=== PATIENT | female | born 1990 ===

== ENCOUNTER 2020-04-18 12:17 | Inpatient (IN) | payer MEDICAID ==
[2020-04-18] MEDS ORDERED: ALBUTEROL 2.5 MG/3 ML NEBU IH ONE ×2 (12:42→14:40)
[2020-04-18] MEDS ORDERED: IPRATROPIUM 0.02% NEBU 2.5 ML IH ONE ×2 (12:42→14:40)
[2020-04-18] MEDS ORDERED: SODIUM CHLORIDE 0.9% 1000 ML 1,000 ML IV ONE (12:45)
--- NOTE | 2020-04-18 12:46 | Emergency Department Report ---
HPI - General Chief Complaint: Adult Asthma Time Seen by Provider: 04/18/20 12:28 - HPI HPI: Room 40 The patient is a 30-year-old female present with a chief complaint of shortness of breath. Patient states for the past 3 to 4 days she has had gradually worsening shortness of breath. Patient admits to a cough productive of yellow sputum occasionally blood-tinged. Patient denies history of fever. Patient denies known contact with Covid positive patients ED Past Medical Hx - Past Medical History Previous Medical History?: Yes Hx Asthma: Yes - Surgical History Past Surgical History?: No - Family History Family history: no significant - Social History Smoking Status: Never Smoker Substance Use Type: None (Denies illicit drug use) ED Review of Systems ROS: Stated complaint: ASTHMA Other details as noted in HPI Constitutional: denies: fever Eyes: denies: eye pain ENT: denies: throat pain Respiratory: cough, shortness of breath, wheezing Cardiovascular: denies: chest pain Endocrine: no symptoms reported Gastrointestinal: denies: abdominal pain Genitourinary: denies: dysuria Musculoskeletal: denies: back pain Neurological: denies: headache Physical Exam - Physical Exam Vital Signs: Vital Signs 04/18/20 04/18/20 12:20 12:23 Temperature 97.9 F Pulse Rate 120 H Respiratory 22 Rate Blood Pressure 120/83 [Right] O2 Sat by Pulse 92 2 L Oximetry Physical Exam: GENERAL: The patient is well-developed well-nourished []. [] HEENT: Normocephalic. Atraumatic. Extraocular motions are intact. Patient has moist mucous membranes. NECK: Supple. No meningitic signs are noted. There is no adenopathy noted. CHEST/LUNGS: Audible wheezing. There is increased work of breathing HEART/CARDIOVASCULAR: Regular. There is tachycardia. There is no gallop rub or murmur. ABDOMEN: Abdomen is soft, nontender. Patient has normal bowel sounds. There is no abdominal distention. SKIN: There is no rash. There is no edema. There is no diaphoresis. NEURO: The patient is awake, alert, and oriented. The patient is cooperative. The patient has normal speech MUSCULOSKELETAL: There is no evidence of acute injury. ED Course Vital Signs 04/18/20 04/18/20 12:20 12:23 Temperature 97.9 F Pulse Rate 120 H Respiratory 22 Rate Blood Pressure 120/83 [Right] O2 Sat by Pulse 92 2 L Oximetry - Reevaluation(s) Reevaluation #1: 04/18/20 14:40 Patient states she is feeling improved. Patient still has faint wheezing at the bases. Will administer another nebulizer Reevaluation #2: 04/18/20 16:13 Patient still has faint expiratory wheezing but maintaining sat at 96% on room air. Patient states she does not feel comfortable going home. Will admit the patient to the hospital ED Medical Decision Making - Lab Data Result diagrams: 04/18/20 13:09 04/18/20 13:09 Laboratory Tests 04/18/20 04/18/20 04/18/20 13:09 13:09 13:09 WBC 10.7 RBC 4.75 Hgb 14.6 H Hct 43.2 H MCV 91 MCH 31 MCHC 34 RDW 12.8 L Plt Count 261 Lymph % (Auto) 8.6 L [place] % (Auto) 1.4 Eos % (Auto) 7.8 H Baso % (Auto) 0.4 Lymph # (Auto) 0.9 L [place] # (Auto) 0.2 Eos # (Auto) 0.8 H Baso # (Auto) 0.0 Seg Neutrophils % 81.8 H Seg Neutrophils # 8.7 H PT 13.1 INR 1.00 Sodium 143 Potassium 4.0 Chloride 108.7 H Carbon Dioxide 26 Anion Gap 12 BUN 10 Creatinine 0.6 Estimated GFR > 60 BUN/Creatinine Ratio 17 Glucose 100 Calcium 8.9 HCG, Qual 04/18/20 13:09 WBC RBC Hgb Hct MCV MCH MCHC RDW Plt Count Lymph % (Auto) [place] % (Auto) Eos % (Auto) Baso % (Auto) Lymph # (Auto) [place] # (Auto) Eos # (Auto) Baso # (Auto) Seg Neutrophils % Seg Neutrophils # PT INR Sodium Potassium Chloride Carbon Dioxide Anion Gap BUN Creatinine Estimated GFR BUN/Creatinine Ratio Glucose Calcium HCG, Qual Negative - Radiology Data Radiology results: report reviewed (Chest x-ray), image reviewed (Chest x-ray) interpreted by me: Chest x-ray-no focal infiltrates, no pneumothorax. No foreign body seen Chest x-ray (read by radiologist)-no acute findings - Differential Diagnosis Pneumonia, bronchitis, asthma exacerbation, COVID-19 Critical care attestation.: If time is entered above; I have spent that time in minutes in the direct care of this critically ill patient, excluding procedure time. ED Disposition Clinical Impression: Acute asthma exacerbation, Acute bronchitis Disposition: OP ADMIT IP TO THIS HOSP Is pt being admited?: Yes Does the pt Need Aspirin: No Condition: Fair Instructions: Acute Bronchitis (ED) Referrals: LIDIA MAKI MD [Primary Care Provider] - 3-5 Days Time of Disposition: 16:13 (Hospitalist notified (Dr. Rodriguez))
[2020-04-18 13:38] LABS: Basophils % (Auto) 0.4 % (0.0-1.8); Eosinophils # (Auto) 0.8 K/mm3 (0.0-0.4); Eosinophils % (Auto) 7.8 % (0.0-4.3); Hematocrit 43.2 % (30.3-42.9); Hemoglobin 14.6 gm/dl (10.1-14.3); Lymphocytes # (Auto) 0.9 K/mm3 (1.2-5.4); Lymphocytes % (Auto) 8.6 % (13.4-35.0); Mean Corpuscular HGB Conc 34 % (30-34); Mean Corpuscular Volume 91 fl (79-97); Monocytes # (Auto) 0.2 K/mm3 (0.0-0.8); Monocytes % (Auto) 1.4 % (0.0-7.3); Platelet Count 261 K/mm3 (140-440); Red Blood Count 4.75 M/mm3 (3.65-5.03); Red Cell Distribution Width 12.8 % (13.2-15.2)
[2020-04-18 14:10] LABS: Blood Urea Nitrogen 10 mg/dL (7-17); Calcium 8.9 mg/dL (8.4-10.2); Hemolysis Index 4
[2020-04-18 14:11] LABS: BUN/Creatinine Ratio 17
--- NOTE | 2020-04-18 14:34 | XRay Report ---
CHEST 1 VIEW INDICATION: Shortness of breath, productive cough. COMPARISON: 04/01/2020 FINDINGS: Support devices: None. Heart: Within normal limits. Lungs/Pleura: There is poor inspiration with crowding of the pulmonary structures. No acute air space or interstitial disease. No pleural effusion or pneumothorax. Additional findings: None. IMPRESSION: No acute findings. Signer Name: Derrick Figueroa Jr, MD Signed: 04/18/2020 2:29 PM Workstation Name: [id number]
[2020-04-18] MEDS ORDERED: guaiFENesin 100 MG/5 ML ORAL LIQD PO ONE (16:00)
[2020-04-18] MEDS ORDERED: cefTRIAXone/NS 1 GM/50 ML 1 GM/50 ML BAG IV ONE (16:14)
[2020-04-18] MEDS ORDERED: METOCLOPRAMIDE 10 MG/2 ML INJ IV PRN (22:10)
[2020-04-18] MEDS ORDERED: ONDANSETRON 4 MG/2 ML INJ IV PRN (22:10)
[2020-04-18] MEDS ORDERED: HYDROmorphone 1 MG/1 ML INJ IV PRN (22:10)
[2020-04-18] MEDS ORDERED: IPRATROPIUM/ALBUTEROL SULFATE 3 ML AMPUL.NEB IH PRN (22:11)
[2020-04-18] MEDS ORDERED: ALBUTEROL 2.5 MG/3 ML NEBU IH PRN (22:29)
[2020-04-18] MEDS: HEPARIN 5,000 UNIT/1 ML VIAL SUB-Q SCH (22:55)
[2020-04-18] MEDS: methylPREDNISolone Sod Succinate 40 MG/1 ML INJ IV SCH (22:55)
[2020-04-18] MEDS: SODIUM CHLORIDE 0.9% 1000 ML 1,000 ML IV SCH (22:56)
--- NOTE | 2020-04-18 23:47 | History and Physical Report ---
History of Present Illness Date of examination: 04/18/20 Date of admission: 04/18/20 16:15 Chief complaint: SOB since AM History of present illness: The patient is a 30-year-old female present with a chief complaint of shortness of breath. Patient states for the past 3 to 4 days she has had gradually worsening shortness of breath. Patient admits to a cough productive of yellow sputum occasionally blood-tinged. Patient denies history of fever. Patient denies known contact with Covid positive patients - Past Medical History Previous Medical History?: Yes Hx Asthma: Yes - Surgical History Past Surgical History?: No - Family History Family history: no significant - Social History Smoking Status: Never Smoker Substance Use Type: None (Denies illicit drug use) Review of Systems ROS: Stated complaint: ASTHMA Other details as noted in HPI Constitutional: denies: fever Eyes: denies: eye pain ENT: denies: throat pain Respiratory: cough, shortness of breath, wheezing Cardiovascular: denies: chest pain Endocrine: no symptoms reported Gastrointestinal: denies: abdominal pain Genitourinary: denies: dysuria Musculoskeletal: denies: back pain Neurological: denies: headache Medications and Allergies Allergies Allergy/AdvReac Type Severity Reaction Status Date / Time No Known Allergies Allergy Unverified 04/18/20 12:21 Home Medications Medication Instructions Recorded Confirmed Last Taken Type Albuterol Sulfate [Proair 90 mcg IH Q6H PRN 04/19/20 04/19/20 Unknown History Respiclick] Active Meds: Active Medications Acetaminophen (Acetaminophen 325 Mg Tab) 650 mg PO Q4H PRN PRN Reason: Pain MILD(1-3)/Fever >100.5/DESOUZA Albuterol (Albuterol 2.5 Mg/3 Ml Nebu) 2.5 mg IH Q3HRT PRN PRN Reason: Shortness Of Breath Last Admin: 04/18/20 23:06 Dose: 2.5 mg Documented by: Albuterol/Ipratropium (Ipratropium/Albuterol Sulfate 3 Ml Ampul.Neb) 1 ampul IH QIDRT MIKA Famotidine (Famotidine 20 Mg/2 Ml Inj) 20 mg IV BID MIKA Heparin Sodium (Porcine) (Heparin 5,000 Unit/1 Ml Vial) 5,000 unit SUB-Q Q12HR MIKA Last Admin: 01/12/21 22:55 Dose: 5,000 unit Documented by: Hydromorphone HCl (Hydromorphone 1 Mg/1 Ml Inj) 0.5 mg IV Q3H PRN PRN Reason: Pain , Severe (7-10) Sodium Chloride (Nacl 0.9% 1000 Ml) 1,000 mls @ 42 mls/hr IV [facility] Last Admin: 04/18/20 22:56 Dose: 42 mls/hr Documented by: Levofloxacin/Dextrose (Levaquin 750mg/150ml) 750 mg in 150 mls @ 100 mls/hr IV Q24HR [facility]; Protocol Methylprednisolone Sodium Succinate (Methylprednisolone Sod Succinate 40 Mg/1 Ml Inj) 80 mg IV Q8HR [facility] Last Admin: 04/18/20 22:55 Dose: 80 mg Documented by: Metoclopramide HCl (Metoclopramide 10 Mg/2 Ml Inj) 10 mg IV Q6H PRN PRN Reason: Nausea And Vomiting Ondansetron HCl (Ondansetron 4 Mg/2 Ml Inj) 4 mg IV Q8H PRN PRN Reason: Nausea And Vomiting Oxycodone/Acetaminophen (Oxycodone /Acetaminophen 5-325mg Tab) 1 tab PO Q6H PRN PRN Reason: Pain, Moderate (4-6) Sodium Chloride (Sodium Chloride 0.9% 10 Ml Flush Syringe) 10 ml IV BID [facility] Last Admin: 04/18/20 22:55 Dose: 10 ml Documented by: Sodium Chloride (Sodium Chloride 0.9% 10 Ml Flush Syringe) 10 ml IV PRN PRN PRN Reason: LINE FLUSH Exam - Constitutional Vitals: Temp Pulse Resp BP Pulse Ox 97.9 F 90 16 119/69 98 04/18/20 12:20 04/18/20 23:07 04/18/20 23:07 04/18/20 20:15 04/18/20 20:15 General appearance: Present: mild distress, well-nourished - EENT Eyes: Present: PERRL ENT: hearing intact, clear oral mucosa - Neck Neck: Present: supple, normal ROM - Respiratory Respiratory effort: normal Respiratory: bilateral: CTA, rhonchi, wheezing - Cardiovascular Heart rate: 78 Rhythm: regular Heart Sounds: Present: S1 & S2. Absent: rub, click - Extremities Extremities: pulses symmetrical, No edema Peripheral Pulses: within normal limits - Abdominal General gastrointestinal: Present: soft, non-tender, non-distended, normal bowel sounds Female genitourinary: Present: normal - Integumentary Integumentary: Present: clear, warm, dry - Musculoskeletal Musculoskeletal: gait normal, strength equal bilaterally - Psychiatric Psychiatric: appropriate mood/affect, intact judgment & insight - Neurologic Neurologic: CNII-XII intact, moves all extremities - Allied Health Allied health notes reviewed: nursing, case management Results - Labs CBC & Chem 7: 04/19/20 07:22 04/22/20 05:36 Labs: Laboratory Last Values WBC 10.7 K/mm3 (4.5-11.0) 04/18/20 13:09 RBC 4.75 M/mm3 (3.65-5.03) 04/18/20 13:09 Hgb 14.6 gm/dl (10.1-14.3) H 04/18/20 13:09 Hct 43.2 % (30.3-42.9) H 04/18/20 13:09 MCV 91 fl (79-97) 04/18/20 13:09 MCH 31 pg (28-32) 04/18/20 13:09 MCHC 34 % (30-34) 04/18/20 13:09 RDW 12.8 % (13.2-15.2) L 04/18/20 13:09 Plt Count 261 K/mm3 (140-440) 04/18/20 13:09 Lymph % (Auto) 8.6 % (13.4-35.0) L 04/18/20 13:09 [place] % (Auto) 1.4 % (0.0-7.3) 04/18/20 13:09 Eos % (Auto) 7.8 % (0.0-4.3) H 04/18/20 13:09 Baso % (Auto) 0.4 % (0.0-1.8) 04/18/20 13:09 Lymph # (Auto) 0.9 K/mm3 (1.2-5.4) L 04/18/20 13:09 [place] # (Auto) 0.2 K/mm3 (0.0-0.8) 04/18/20 13:09 Eos # (Auto) 0.8 K/mm3 (0.0-0.4) H 04/18/20 13:09 Baso # (Auto) 0.0 K/mm3 (0.0-0.1) 04/18/20 13:09 Seg Neutrophils % 81.8 % (40.0-70.0) H 04/18/20 13:09 Seg Neutrophils # 8.7 K/mm3 (1.8-7.7) H 04/18/20 13:09 PT 13.1 Sec. (12.2-14.9) 04/18/20 13:09 INR 1.00 (0.87-1.13) 04/18/20 13:09 Sodium 143 mmol/L (137-145) 04/18/20 13:09 Potassium 4.0 mmol/L (3.6-5.0) 04/18/20 13:09 Chloride 108.7 mmol/L (98-107) H 04/18/20 13:09 Carbon Dioxide 26 mmol/L (22-30) 04/18/20 13:09 Anion Gap 12 mmol/L 04/18/20 13:09 BUN 10 mg/dL (7-17) 04/18/20 13:09 Creatinine 0.6 mg/dL (0.6-1.2) 04/18/20 13:09 Estimated GFR > 60 ml/min 04/18/20 13:09 BUN/Creatinine Ratio 17 % 04/18/20 13:09 Glucose 100 mg/dL (65-100) 04/18/20 13:09 Calcium 8.9 mg/dL (8.4-10.2) 04/18/20 13:09 HCG, Qual Negative (Negative) 04/18/20 13:09 Microbiology: Microbiology 04/18/20 13:09 Peripheral/Venous Blood Culture - Preliminary Culture in Progress 04/18/20 13:09 Peripheral/Venous Blood Culture - Preliminary Culture in Progress - Imaging and Cardiology Chest x-ray: report reviewed Rasmussen/IV: IV Catheter Type [Left Peripheral IV Antecubital] Assessment and Plan Advance Directives: Yes - Patient Problems (1) Acute respiratory failure with hypoxia Current Visit: Yes Status: Acute Plan to address problem: ) IV steroids, Duonebs prn and qid and IV Levaquin (2) Acute asthma exacerbation Current Visit: Yes Status: Acute Plan to address problem: IV steroids, Duonebs prn and qid and IB Levaquin (3) Acute bronchitis Current Visit: Yes Status: Acute Qualifiers: Bronchitis organism: unspecified organism Qualified Code(s): J20.9 - Acute bronchitis, unspecified Plan to address problem: IV steroids, Duonebs prn and qid and IB Levaquin (4) Person under investigation for COVID-19 Current Visit: Yes Status: Acute Plan to address problem: Moseley virus PCR in AM (5) DVT prophylaxis Current Visit: Yes Status: Acute Plan to address problem: on Heparin and GI prophylaxis
[2020-04-19] MEDS: IPRATROPIUM/ALBUTEROL SULFATE 3 ML AMPUL.NEB IH SCH ×5 (01:50→23:09)
[2020-04-19] MEDS ORDERED: IPRATROPIUM/ALBUTEROL SULFATE 3 ML AMPUL.NEB IH ONE (01:53)
[2020-04-19] MEDS: methylPREDNISolone Sod Succinate 40 MG/1 ML INJ IV SCH ×3 (06:15→22:01)
[2020-04-19 07:43] LABS: Basophils % (Auto) 0.1 % (0.0-1.8); Hematocrit 39.3 % (30.3-42.9); Hemoglobin 13.5 gm/dl (10.1-14.3); Lymphocytes # (Auto) 0.9 K/mm3 (1.2-5.4); Lymphocytes % (Auto) 15.4 % (13.4-35.0); Mean Corpuscular HGB Conc 34 % (30-34); Mean Corpuscular Volume 90 fl (79-97); Monocytes # (Auto) 0.2 K/mm3 (0.0-0.8); Monocytes % (Auto) 2.6 % (0.0-7.3); Platelet Count 264 K/mm3 (140-440); Red Blood Count 4.37 M/mm3 (3.65-5.03); Red Cell Distribution Width 12.7 % (13.2-15.2)
[2020-04-19 08:06] LABS: Alanine Aminotransferase 14 units/L (7-56); Albumin 4.1 g/dL (3.9-5); Blood Urea Nitrogen 9 mg/dL (7-17); Calcium 9.2 mg/dL (8.4-10.2); Hemolysis Index 8
[2020-04-19 08:15] LABS: BUN/Creatinine Ratio 18
[2020-04-19] MEDS: HEPARIN 5,000 UNIT/1 ML VIAL SUB-Q SCH ×2 (10:40→22:01)
[2020-04-19] MEDS: FAMOTIDINE 20 MG/2 ML INJ IV SCH ×2 (10:40→22:01)
[2020-04-19] MEDS: SODIUM CHLORIDE 0.9% 1000 ML 1,000 ML IV SCH (22:57)
--- NOTE | 2020-04-19 23:42 | Progress Note ---
Assessment and Plan - Patient Problems (1) Acute respiratory failure with hypoxia Current Visit: Yes Status: Acute Plan to address problem: ) IV steroids, Duonebs prn and qid and IV Levaquin (2) Acute asthma exacerbation Current Visit: Yes Status: Acute Plan to address problem: IV steroids, Duonebs prn and qid and IB Levaquin (3) Acute bronchitis Current Visit: Yes Status: Acute Qualifiers: Bronchitis organism: unspecified organism Qualified Code(s): J20.9 - Acute bronchitis, unspecified Plan to address problem: IV steroids, Duonebs prn and qid and IB Levaquin (4) Pneumonia due to COVID-19 virus Current Visit: Yes Status: Acute Plan to address problem: ID consult requested (5) DVT prophylaxis Current Visit: Yes Status: Acute Plan to address problem: on Lovenox and GI prophylaxis Subjective Date of service: 04/19/20 Principal diagnosis: Status Asthmaticus Interval history: Improved Moseley Virus positive Objective - Constitutional Vitals: Vital Signs - 12hr 04/19/20 04/19/20 04/19/20 12:00 13:42 14:00 Temperature Pulse Rate 98 H 117 H Pulse Rate [ 127 H Throughout] Respiratory 18 15 Rate Respiratory 35 H Rate [ Throughout] Blood Pressure 127/73 105/54 O2 Sat by Pulse 94 Oximetry 04/19/20 04/19/20 04/19/20 16:00 16:09 18:00 Temperature Pulse Rate 107 H 113 H Pulse Rate [ 103 H Throughout] Respiratory 15 21 Rate Respiratory 22 Rate [ Throughout] Blood Pressure 105/54 120/82 O2 Sat by Pulse 97 98 Oximetry 04/19/20 04/19/20 04/19/20 20:00 20:40 20:50 Temperature Pulse Rate 125 H 109 H 109 H Pulse Rate [ Throughout] Respiratory 26 H 22 18 Rate Respiratory Rate [ Throughout] Blood Pressure 120/82 120/77 120/77 O2 Sat by Pulse 96 97 Oximetry 04/19/20 04/19/20 04/19/20 21:00 21:10 21:30 Temperature 97.3 F L Pulse Rate 125 H 119 H 112 H Pulse Rate [ Throughout] Respiratory 24 25 H 24 Rate Respiratory Rate [ Throughout] Blood Pressure 120/77 120/77 147/97 O2 Sat by Pulse 97 Oximetry 04/19/20 23:10 Temperature Pulse Rate Pulse Rate [ 105 H Throughout] Respiratory Rate Respiratory 18 Rate [ Throughout] Blood Pressure O2 Sat by Pulse Oximetry General appearance: Present: mild distress, well-nourished - EENT Eyes: PERRL, EOM intact ENT: hearing intact, clear oral mucosa Ears: bilateral: normal - Neck Neck: supple, normal ROM - Respiratory Respiratory effort: normal Respiratory: bilateral: CTA - Breasts Breasts: normal - Cardiovascular Heart rate: 78 Rhythm: regular Heart Sounds: Present: S1 & S2. Absent: gallop, rub Extremities: pulses intact, No edema, normal color, Full ROM - Gastrointestinal General gastrointestinal: Present: soft, non-tender, non-distended, normal bowel sounds - Genitourinary Female genitourinary: normal - Integumentary Integumentary: clear, warm, dry - Musculoskeletal Musculoskeletal: 1, strength equal bilaterally - Neurologic Neurologic: moves all extremities - Psychiatric Psychiatric: memory intact, appropriate mood/affect, intact judgment & insight - Allied health notes Allied health notes reviewed: nursing, case management - Labs CBC & Chem 7: 04/19/20 07:22 04/22/20 05:36 Labs: Abnormal lab results 04/19/20 04/19/20 04/19/20 Range/Units 07:22 07:22 09:46 RDW 12.7 L (13.2-15.2) % Lymph # (Auto) 0.9 L (1.2-5.4) K/mm3 Seg Neutrophils % 81.9 H (40.0-70.0) % Chloride 108.4 H (98-107) mmol/L Creatinine 0.5 L (0.6-1.2) mg/dL Glucose 142 H (65-100) mg/dL Coronavirus (PCR) Positive A (Negative)
[2020-04-20] MEDS: guaiFENesin DM 200/20 MG ORAL LIQD 10 ML PO PRN ×4 (02:11→21:46)
[2020-04-20] MEDS: oxyCODONE /ACETAMINOPHEN 5-325MG TAB PO PRN ×2 (02:11→21:46)
[2020-04-20] MEDS ORDERED: ALBUTEROL 8.5 GM MDI INHALATION IH PRN (03:00)
[2020-04-20] MEDS: methylPREDNISolone Sod Succinate 40 MG/1 ML INJ IV SCH ×3 (06:02→21:48)
[2020-04-20] MEDS: IPRATROPIUM/ALBUTEROL SULFATE 3 ML AMPUL.NEB IH SCH ×5 (08:09→19:15)
[2020-04-20] MEDS: FAMOTIDINE 20 MG TAB PO SCH ×2 (10:48→21:47)
[2020-04-20] MEDS: levoFLOXacin 750 MG TAB PO SCH (10:48)
[2020-04-20] MEDS: HEPARIN 5,000 UNIT/1 ML VIAL SUB-Q SCH ×2 (10:48→21:47)
--- NOTE | 2020-04-20 18:44 | Progress Note ---
Assessment and Plan - Patient Problems (1) Acute respiratory failure with hypoxia Current Visit: Yes Status: Acute Plan to address problem: ) IV steroids, Duonebs prn and qid and IB Levaquin (2) Acute asthma exacerbation Current Visit: Yes Status: Acute Plan to address problem: IV steroids, Duonebs prn and qid and IB Levaquin (3) Acute bronchitis Current Visit: Yes Status: Acute Qualifiers: Bronchitis organism: unspecified organism Qualified Code(s): J20.9 - Acute bronchitis, unspecified Plan to address problem: IV steroids, Duonebs prn and qid and IB Levaquin (4) Pneumonia due to COVID-19 virus Current Visit: Yes Status: Acute Plan to address problem: ID consult appreciated COVID-19 pneumonia: Patient presented with 4 days of symptoms, chest x-ray normal, admission O2 sats 98% on room air. Normal procalcitonin. #Acute hypoxemic respiratory failure: Likely secondary to COVID-19 infection. Currently on 2 L nasal cannula #Morbid obesity: Associated with worse COVID-19 outcomes #Asthma: currently on high-dose steroids Recs per ID -Steroids per primary, complete 10 days. -Started remdesivir for 5 days. Monitor renal and hepatic function. Day 1 of 5. -Obtain every other day inflammatory markers starting today. Includes ferritin, D-dimer, CRP, LDH -Stop antibiotics due to normal procalcitonin -Anticoagulation per hospital protocol -Proning as able (5) DVT prophylaxis Current Visit: Yes Status: Acute Plan to address problem: on Heparin and GI prophylaxis Subjective Date of service: 04/20/20 Principal diagnosis: Covid pneumonia Interval history: Improved Moseley Virus positive On 3 liters O2 Objective - Constitutional Vitals: Vital Signs - 12hr 04/20/20 04/20/20 04/20/20 08:09 08:10 12:00 Pulse Rate [ 108 H Throughout] Respiratory 19 Rate [ Throughout] O2 Sat by Pulse 97 95 Oximetry 04/20/20 04/20/20 04/20/20 14:00 17:54 17:55 Pulse Rate [ 94 H 75 Throughout] Respiratory 19 18 Rate [ Throughout] O2 Sat by Pulse 99 Oximetry General appearance: Present: no acute distress, well-nourished - EENT Eyes: PERRL, EOM intact ENT: hearing intact, clear oral mucosa Ears: bilateral: normal - Neck Neck: supple, normal ROM - Respiratory Respiratory effort: normal Respiratory: bilateral: CTA - Breasts Breasts: normal - Cardiovascular Heart rate: 78 Rhythm: regular Heart Sounds: Present: S1 & S2. Absent: gallop, rub Extremities: pulses intact, No edema, normal color, Full ROM - Gastrointestinal General gastrointestinal: Present: soft, non-tender, non-distended, normal bowel sounds - Genitourinary Female genitourinary: normal - Integumentary Integumentary: clear, warm, dry - Musculoskeletal Musculoskeletal: 1, strength equal bilaterally - Neurologic Neurologic: moves all extremities - Psychiatric Psychiatric: memory intact, appropriate mood/affect, intact judgment & insight - Allied health notes Allied health notes reviewed: nursing, case management - Labs CBC & Chem 7: 04/19/20 07:22 04/22/20 05:36
[2020-04-21] MEDS: methylPREDNISolone Sod Succinate 40 MG/1 ML INJ IV SCH ×3 (06:20→22:22)
[2020-04-21] MEDS ORDERED: REMDESIVIR 200 MG in SODIUM CHLORIDE 0.9% 250ML 250 ML IV ONE (08:00)
[2020-04-21] MEDS ORDERED: REMDESIVIR 100 MG VIAL IV ONE (08:00)
[2020-04-21] MEDS: SODIUM CHLORIDE 0.9% 50 ML IVPB IV SCH (08:03)
[2020-04-21] MEDS: IPRATROPIUM/ALBUTEROL SULFATE 3 ML AMPUL.NEB IH SCH ×4 (08:06→20:50)
[2020-04-21] MEDS: levoFLOXacin 750 MG TAB PO SCH (10:08)
[2020-04-21] MEDS: HEPARIN 5,000 UNIT/1 ML VIAL SUB-Q SCH ×2 (10:08→22:22)
[2020-04-21] MEDS: FAMOTIDINE 20 MG TAB PO SCH ×2 (10:08→22:21)
--- NOTE | 2020-04-21 12:24 | Consultation ---
History of Present Illness - Reason for Consult Consult date: 04/21/20 - History of Present Illness 30 old female past medical history asthma noted with shortness of breath. This began about 3 to 4 days prior to admission has been progressively worse since that time. She also complains of a cough that is productive of yellow sputum. She denies fevers, chills, or other Covid symptoms. She denies any known Covid contacts. Afebrile since admission with a normal white count. Covid testing positive. Normal procalcitonin, normal renal function. Blood cultures remain negative at this time. She is currently on 2 L nasal cannula. Imaging personally reviewed: Chest x-ray: No acute findings. Review of systems: Deferred due to PPE conservation strategy. Past History Past Medical History: other (Asthma) Past Surgical History: No surgical history Social history: no significant social history Family history: no significant family history Medications and Allergies Allergies Allergy/AdvReac Type Severity Reaction Status Date / Time No Known Allergies Allergy Unverified 04/18/20 12:21 Home Medications Medication Instructions Recorded Confirmed Last Taken Type Albuterol Sulfate [Proair 90 mcg IH Q6H PRN 04/19/20 04/19/20 Unknown History Respiclick] Active Meds: Active Medications Acetaminophen (Acetaminophen 325 Mg Tab) 650 mg PO Q4H PRN PRN Reason: Pain MILD(1-3)/Fever >100.5/DESOUZA Albuterol (Albuterol 8.5 Gm Mdi Inhalation) 2 puff IH Q3HRT PRN PRN Reason: Shortness Of Breath Albuterol/Ipratropium (Ipratropium/Albuterol Sulfate 3 Ml Ampul.Neb) 1 ampul IH QIDRT COUNTS INCLUDE 234 BEDS AT THE [facility] Last Admin: 04/21/20 08:06 Dose: 1 ampul Documented by: Famotidine (Famotidine 20 Mg Tab) 20 mg PO BID COUNTS INCLUDE 234 BEDS AT THE [facility] Last Admin: 04/21/20 10:08 Dose: 20 mg Documented by: Guaifenesin (Guaifenesin Dm 200/20 Mg Oral Liqd 10 Ml) 10 ml PO Q4H PRN PRN Reason: Cough Last Admin: 04/20/20 21:46 Dose: 10 ml Documented by: Heparin Sodium (Porcine) (Heparin 5,000 Unit/1 Ml Vial) 5,000 unit SUB-Q Q12HR COUNTS INCLUDE 234 BEDS AT THE [facility] Last Admin: 04/21/20 10:08 Dose: 5,000 unit Documented by: Hydromorphone HCl (Hydromorphone 1 Mg/1 Ml Inj) 0.5 mg IV Q3H PRN PRN Reason: Pain , Severe (7-10) Last Admin: 04/19/20 12:15 Dose: 0.5 mg Documented by: Sodium Chloride (Nacl 0.9% 1000 Ml) 1,000 mls @ 42 mls/hr IV DIRECT COUNTS INCLUDE 234 BEDS AT THE [facility] Last Admin: 04/19/20 22:57 Dose: 42 mls/hr Documented by: REMDESIVIR 100 mg/ Sodium (Chloride) 250 mls @ 500 mls/hr IV Q24HR@2100 COUNTS INCLUDE 234 BEDS AT THE [facility] Stop: 04/25/20 21:29 Levofloxacin (Levofloxacin 750 Mg Tab) 750 mg PO Q24HR COUNTS INCLUDE 234 BEDS AT THE [facility] Stop: 04/23/20 12:00 Last Admin: 04/21/20 10:08 Dose: 750 mg Documented by: Methylprednisolone Sodium Succinate (Methylprednisolone Sod Succinate 40 Mg/1 Ml Inj) 80 mg IV Q8HR COUNTS INCLUDE 234 BEDS AT THE [facility] Last Admin: 04/21/20 06:20 Dose: 80 mg Documented by: Metoclopramide HCl (Metoclopramide 10 Mg/2 Ml Inj) 10 mg IV Q6H PRN PRN Reason: Nausea And Vomiting Ondansetron HCl (Ondansetron 4 Mg/2 Ml Inj) 4 mg IV Q8H PRN PRN Reason: Nausea And Vomiting Oxycodone/Acetaminophen (Oxycodone /Acetaminophen 5-325mg Tab) 1 tab PO Q6H PRN PRN Reason: Pain, Moderate (4-6) Last Admin: 04/20/20 21:46 Dose: 1 tab Documented by: Sodium Chloride (Sodium Chloride 0.9% 10 Ml Flush Syringe) 10 ml IV BID COUNTS INCLUDE 234 BEDS AT THE [facility] Last Admin: 04/21/20 10:09 Dose: 10 ml Documented by: Sodium Chloride (Sodium Chloride 0.9% 10 Ml Flush Syringe) 10 ml IV PRN PRN PRN Reason: LINE FLUSH Last Admin: 04/19/20 10:41 Dose: 10 ml Documented by: Sodium Chloride (Sodium Chloride 0.9% 50 Ml Ivpb) 50 ml IV Q24HR@2100 COUNTS INCLUDE 234 BEDS AT THE [facility] Stop: 04/25/20 21:01 Last Admin: 04/21/20 08:03 Dose: 50 ml Documented by: Physical Examination - Physical Exam Narrative exam: Physical exam deferred due to PPE conservation strategy. Please refer to primary team's note. - Constitutional Vitals: Vital Signs Temp Pulse Resp BP Pulse Ox 97.9 F 92 H 20 106/63 94 04/21/20 04:41 04/21/20 08:06 04/21/20 08:06 04/21/20 04:41 04/21/20 08:06 Temperature -Last 24 Hours Temperature 97.9 F Temperature 97.8 F Temperature 98.4 F Results - Labs CBC & Chem 7: 04/19/20 07:22 04/19/20 07:22 Assessment and Plan Cultures: Blood culture no growth so far Covid positive A/P: 30-year-old female past medical history asthma, morbid obesity admitted with COVID-19 #COVID-19 pneumonia: Patient presented with 4 days of symptoms, chest x-ray normal, admission O2 sats 98% on room air. Normal procalcitonin. #Acute hypoxemic respiratory failure: Likely secondary to COVID-19 infection. Currently on 2 L nasal cannula #Morbid obesity: Associated with worse COVID-19 outcomes #Asthma: currently on high-dose steroids Recs: -Steroids per primary, complete 10 days. -Started remdesivir for 5 days. Monitor renal and hepatic function. Day 1 of 5. -Obtain every other day inflammatory markers starting today. Includes ferritin, D-dimer, CRP, LDH -Stop antibiotics due to normal procalcitonin -Anticoagulation per hospital protocol -Proning as able Thank you for the consult, we will continue to follow. Dr. Mijares taking over tomorrow. Urbano Galeano MD [facility] O: [phone] F: [phone]
[2020-04-21 13:50] LABS: C-Reactive Protein 0.1 mg/dL (0.00-1.30)
[2020-04-21] MEDS: guaiFENesin DM 200/20 MG ORAL LIQD 10 ML PO PRN (22:20)
[2020-04-21] MEDS: ACETAMINOPHEN 325 MG TAB PO PRN (22:34)
[2020-04-22] MEDS: methylPREDNISolone Sod Succinate 40 MG/1 ML INJ IV SCH ×3 (05:53→21:01)
[2020-04-22] MEDS: oxyCODONE /ACETAMINOPHEN 5-325MG TAB PO PRN ×2 (05:59→21:30)
[2020-04-22 06:47] LABS: Alanine Aminotransferase 12 units/L (7-56); Albumin 3.7 g/dL (3.9-5); Blood Urea Nitrogen 15 mg/dL (7-17); Calcium 8.6 mg/dL (8.4-10.2); Hemolysis Index 5
[2020-04-22 06:48] LABS: BUN/Creatinine Ratio 25
[2020-04-22] MEDS: IPRATROPIUM/ALBUTEROL SULFATE 3 ML AMPUL.NEB IH SCH ×4 (07:46→21:03)
[2020-04-22] MEDS: ACETAMINOPHEN 325 MG TAB PO PRN (08:53)
--- NOTE | 2020-04-22 10:25 | Progress Note ---
Assessment and Plan - Patient Problems (1) Acute respiratory failure with hypoxia Current Visit: Yes Status: Acute Plan to address problem: ) IV steroids, Duonebs prn and qid and IV Levaquin (2) Acute asthma exacerbation Current Visit: Yes Status: Acute Plan to address problem: IV steroids, Duonebs prn and qid and IB Levaquin (3) Acute bronchitis Current Visit: Yes Status: Acute Qualifiers: Bronchitis organism: unspecified organism Qualified Code(s): J20.9 - Acute bronchitis, unspecified Plan to address problem: IV steroids, Duonebs prn and qid and IB Levaquin (4) Pneumonia due to COVID-19 virus Current Visit: Yes Status: Acute Plan to address problem: ID consult appreciated COVID-19 pneumonia: Patient presented with 4 days of symptoms, chest x-ray normal, admission O2 sats 98% on room air. Normal procalcitonin. #Acute hypoxemic respiratory failure: Likely secondary to COVID-19 infection. Currently on 2 L nasal cannula #Morbid obesity: Associated with worse COVID-19 outcomes #Asthma: currently on high-dose steroids Recs per ID -Steroids per primary, complete 10 days. -Started remdesivir for 5 days. Monitor renal and hepatic function. Day 1 of 5. -Obtain every other day inflammatory markers starting today. Includes ferritin, D-dimer, CRP, LDH -Stop antibiotics due to normal procalcitonin -Anticoagulation per hospital protocol -Proning as able (5) DVT prophylaxis Current Visit: Yes Status: Acute Plan to address problem: on Lovenox and GI prophylaxis Subjective Date of service: 04/21/20 Principal diagnosis: Covid pneumonia Interval history: Improved Mose[place] Virus positive On 2 liters O2 Objective - Constitutional Vitals: Vital Signs - 12hr 04/21/20 04/21/20 04/22/20 22:42 22:53 00:00 Temperature 97.6 F Pulse Rate 83 Pulse Rate [ 85 Anterior Bilateral Throughout] Respiratory 18 18 Rate Respiratory 18 Rate [Anterior Bilateral Throughout] Blood Pressure 109/66 O2 Sat by Pulse 97 97 Oximetry 04/22/20 04/22/20 04:20 04:59 Temperature 98.1 F Pulse Rate 78 Pulse Rate [ Anterior Bilateral Throughout] Respiratory 18 Rate Respiratory Rate [Anterior Bilateral Throughout] Blood Pressure 96/55 O2 Sat by Pulse 97 96 Oximetry General appearance: Present: no acute distress, well-nourished - EENT Eyes: PERRL, EOM intact ENT: hearing intact, clear oral mucosa Ears: bilateral: normal - Neck Neck: supple, normal ROM - Respiratory Respiratory effort: normal Respiratory: bilateral: CTA - Breasts Breasts: normal - Cardiovascular Heart rate: 78 Rhythm: regular Heart Sounds: Present: S1 & S2. Absent: gallop, rub Extremities: pulses intact, No edema, normal color, Full ROM - Gastrointestinal General gastrointestinal: Present: soft, non-tender, non-distended, normal bowel sounds - Genitourinary Female genitourinary: normal - Integumentary Integumentary: clear, warm, dry - Musculoskeletal Musculoskeletal: 1, strength equal bilaterally - Neurologic Neurologic: moves all extremities - Psychiatric Psychiatric: memory intact, appropriate mood/affect, intact judgment & insight - Allied health notes Allied health notes reviewed: nursing, case management - Labs CBC & Chem 7: 04/19/20 07:22 04/22/20 05:36 Labs: Abnormal lab results 04/21/20 04/22/20 Range/Units 13:07 05:36 Glucose 136 H (65-100) mg/dL Lactate Dehydrogenase 212 H (91-180) units/L Total Protein 5.7 L (6.3-8.2) g/dL Albumin 3.7 L (3.9-5) g/dL
--- NOTE | 2020-04-22 11:07 | Progress Note ---
Assessment and Plan - Patient Problems (1) Acute respiratory failure with hypoxia Current Visit: Yes Status: Acute Plan to address problem: Supplemental oxygen, pulse oximetry, supportive care, proposition while in bed, wean supplemental oxygen to off as clinically indicated. (2) Coronavirus infection Current Visit: Yes Status: Acute Plan to address problem: Contact precautions, isolation precautions, IV antibiotic therapy, IV steroid therapy, full course remdesivir therapy. (3) Obesity hypoventilation syndrome Current Visit: Yes Status: Acute Plan to address problem: Supplemental oxygen, pulse oximetry, outpatient pulmonary follow-up for sleep study. Balanced diet, increase physical activity discharge. (4) DVT prophylaxis Current Visit: Yes Status: Acute Plan to address problem: SCD to bilateral lower extremities while in bed, patient is ambulatory. Prophylactic anticoagulation History Interval history: 30 YO Female HD #4 with acute hypoxemic respiratory failure, obesity hypoventilation syndrome, coronavirus infection. Patient states that she feels better today. Patient denies fever, chills, chest pain, productive cough. No reported nursing events. Hospitalist Physical - Constitutional Vitals: Temp Pulse Resp BP Pulse Ox 98.1 F 78 18 96/55 96 04/22/20 04:20 04/22/20 04:20 04/22/20 04:20 04/22/20 04:20 04/22/20 04:59 General appearance: Present: no acute distress, well-nourished - EENT Eyes: Present: PERRL, EOM intact ENT: hearing intact - Neck Neck: Present: supple - Respiratory Respiratory effort: normal Respiratory: bilateral: CTA - Cardiovascular Rhythm: regular Heart Sounds: Present: S1 & S2 - Extremities Extremities: no ischemia - Abdominal General gastrointestinal: soft, non-tender, non-distended - Integumentary Integumentary: Present: clear, erythema - Psychiatric Psychiatric: appropriate mood/affect, cooperative - Neurologic Neurologic: CNII-XII intact Results - Labs CBC & Chem 7: 04/19/20 07:22 04/22/20 05:36 Labs: Laboratory Last Values WBC 6.2 K/mm3 (4.5-11.0) 04/19/20 07:22 RBC 4.37 M/mm3 (3.65-5.03) 04/19/20 07:22 Hgb 13.5 gm/dl (10.1-14.3) 04/19/20 07:22 Hct 39.3 % (30.3-42.9) 04/19/20 07:22 MCV 90 fl (79-97) 04/19/20 07: MCH 31 pg (28-32) 04/19/20 07:22 MCHC 34 % (30-34) 04/19/20 07:22 RDW 12.7 % (13.2-15.2) L 04/19/20 07:22 Plt Count 264 K/mm3 (140-440) 04/19/20 07:22 Lymph % (Auto) 15.4 % (13.4-35.0) 04/19/20 07:22 Bertie % (Auto) 2.6 % (0.0-7.3) 04/19/20 07:22 Eos % (Auto) 0.0 % (0.0-4.3) 04/19/20 07: Baso % (Auto) 0.1 % (0.0-1.8) 04/19/20 07:22 Lymph # (Auto) 0.9 K/mm3 (1.2-5.4) L 04/19/20 07:22 Bertie # (Auto) 0.2 K/mm3 (0.0-0.8) 04/19/20 07:22 Eos # (Auto) 0.0 K/mm3 (0.0-0.4) 04/19/20 07:22 Baso # (Auto) 0.0 K/mm3 (0.0-0.1) 04/19/20 07:22 Seg Neutrophils % 81.9 % (40.0-70.0) H 04/19/20 07:22 Seg Neutrophils # 5.0 K/mm3 (1.8-7.7) 04/19/20 07:22 PT 13.1 Sec. (12.2-14.9) 04/18/20 13:09 INR 1.00 (0.87-1.13) 04/18/20 13:09 D-Dimer 228.57 ng/mlDDU (0-234) 04/21/20 13:07 Sodium 138 mmol/L (137-145) 04/22/20 05:36 Potassium 4.2 mmol/L (3.6-5.0) 04/22/20 05:36 Chloride 102.4 mmol/L (98-107) 04/22/20 05:36 Carbon Dioxide 25 mmol/L (22-30) 04/22/20 05:36 Anion Gap 15 mmol/L 04/22/20 05:36 BUN 15 mg/dL (7-17) 04/22/20 05:36 Creatinine 0.6 mg/dL (0.6-1.2) 04/22/20 05:36 Estimated GFR > 60 ml/min 04/22/20 05:36 BUN/Creatinine Ratio 25 % 04/22/20 05:36 Glucose 136 mg/dL (65-100) H 04/22/20 05:36 Hemoglobin A1c 5.6 % (4-6) 04/18/20 23:20 Calcium 8.6 mg/dL (8.4-10.2) 04/22/20 05:36 Ferritin 73.6 ng/mL (10.0-200.0) 04/21/20 13:07 Total Bilirubin 0.20 mg/dL (0.1-1.2) 04/22/20 05:36 AST 8 units/L (5-40) 04/22/20 05:36 ALT 12 units/L (7-56) 04/22/20 05:36 Alkaline Phosphatase 57 units/L (35-129) 04/22/20 05:36 Lactate Dehydrogenase 212 units/L (91-180) H 04/21/20 13:07 C-Reactive Protein 0.10 mg/dL (0.00-1.30) 04/21/20 13:07 Total Protein 5.7 g/dL (6.3-8.2) L 04/22/20 05:36 Albumin 3.7 g/dL (3.9-5) L 04/22/20 05:36 Albumin/Globulin Ratio 1.9 % 04/22/20 05:36 Procalcitonin < 0.05 ng/mL (<0.15) 04/18/20 20:50 HCG, Qual Negative (Negative) 04/18/20 13:09 Coronavirus (PCR) Positive (Negative) A 04/19/20 09:46 Microbiology: Microbiology 04/18/20 13:09 Peripheral/Venous Blood Culture - Preliminary NO GROWTH AFTER 72 HOURS 04/18/20 13:09 Peripheral/Venous Blood Culture - Preliminary NO GROWTH AFTER 72 HOURS Rasmussen/IV: Voiding Method Toilet IV Catheter Type [Right Hand] Peripheral IV IV Catheter Type [Right Peripheral IV Forearm] IV Catheter Type [Left Peripheral IV Antecubital] Active Medications - Current Medications Current Medications: Generic Name Dose Route Start Last Admin Trade Name Freq PRN Reason Stop Dose Admin Acetaminophen 650 mg 04/18/20 22:10 04/22/20 08:53 Acetaminophen 325 Mg Tab PO 650 mg Q4H PRN Administration Pain MILD(1-3)/Fever >100.5/DESOUZA Albuterol 2 puff 04/20/20 03:00 Albuterol 8.5 Gm Mdi Inhalation IH Q3HRT PRN Shortness Of Breath Albuterol/Ipratropium 1 ampul 04/19/20 08:00 04/22/20 07:46 Ipratropium/Albuterol Sulfate 3 Ml Ampul.Neb IH 1 ampul QIDRT MIKA Administration Famotidine 20 mg 04/20/20 10:00 04/21/20 22:21 Famotidine 20 Mg Tab PO 20 mg BID MIKA Administration Guaifenesin 10 ml 04/20/20 00:10 04/21/20 22:20 Guaifenesin Dm 200/20 Mg Oral Liqd 10 Ml PO 10 ml Q4H PRN Administration Cough Heparin Sodium (Porcine) 5,000 unit 04/18/20 22:15 04/21/20 22:22 Heparin 5,000 Unit/1 Ml Vial SUB-Q 5,000 unit Q12HR MIKA Administration Hydromorphone HCl 0.5 mg 04/18/20 22:10 04/19/20 12:15 Hydromorphone 1 Mg/1 Ml Inj IV 0.5 mg Q3H PRN Administration Pain , Severe (7-10) Sodium Chloride 1,000 mls @ 42 mls/hr 04/18/20 22:15 04/19/20 22:57 Nacl 0.9% 1000 Ml IV 42 mls/hr DIRECT MIKA Administration REMDESIVIR 100 mg/ Sodium 250 mls @ 500 mls/hr 04/22/20 21:00 Chloride IV 04/25/20 21:29 Q24HR@2100 MIKA Methylprednisolone Sodium Succinate 80 mg 04/18/20 23:00 04/22/20 05:53 Methylprednisolone Sod Succinate 40 Mg/1 Ml Inj IV 80 mg Q8HR MIKA Administration Metoclopramide HCl 10 mg 04/18/20 22:10 Metoclopramide 10 Mg/2 Ml Inj IV Q6H PRN Nausea And Vomiting Ondansetron HCl 4 mg 04/18/20 22:10 Ondansetron 4 Mg/2 Ml Inj IV Q8H PRN Nausea And Vomiting Oxycodone/Acetaminophen 1 tab 04/18/20 22:10 04/22/20 05:59 Oxycodone /Acetaminophen 5-325mg Tab PO 1 tab Q6H PRN Administration Pain, Moderate (4-6) Sodium Chloride 10 ml 04/18/20 23:00 04/21/20 22:22 Sodium Chloride 0.9% 10 Ml Flush Syringe IV 10 ml BID MIKA Administration Sodium Chloride 10 ml 04/18/20 22:10 04/19/20 10:41 Sodium Chloride 0.9% 10 Ml Flush Syringe IV 10 ml PRN PRN Administration LINE FLUSH Sodium Chloride 50 ml 04/21/20 08:30 04/21/20 08:03 Sodium Chloride 0.9% 50 Ml Ivpb IV 04/25/20 21:01 50 ml Q24HR@2100 MIKA Administration
[2020-04-22] MEDS: FAMOTIDINE 20 MG TAB PO SCH ×2 (12:37→22:51)
[2020-04-22] MEDS: HEPARIN 5,000 UNIT/1 ML VIAL SUB-Q SCH ×2 (12:37→21:02)
[2020-04-22] MEDS: SODIUM CHLORIDE 0.9% 50 ML IVPB IV SCH (21:01)
[2020-04-22] MEDS: REMDESIVIR 100 MG in SODIUM CHLORIDE 0.9% 250ML 250 ML IV SCH (21:01)
[2020-04-22] MEDS: guaiFENesin DM 200/20 MG ORAL LIQD 10 ML PO PRN (21:30)
[2020-04-23] MEDS: methylPREDNISolone Sod Succinate 40 MG/1 ML INJ IV SCH ×3 (06:14→21:46)
[2020-04-23 07:19] LABS: Alanine Aminotransferase 11 units/L (7-56); Albumin 3.6 g/dL (3.9-5); BUN/Creatinine Ratio 25; Blood Urea Nitrogen 15 mg/dL (7-17); Calcium 8.5 mg/dL (8.4-10.2); Hemolysis Index 7
[2020-04-23] MEDS: IPRATROPIUM/ALBUTEROL SULFATE 3 ML AMPUL.NEB IH SCH ×4 (08:02→19:00)
[2020-04-23] MEDS: FAMOTIDINE 20 MG TAB PO SCH ×2 (09:55→21:44)
[2020-04-23] MEDS: HEPARIN 5,000 UNIT/1 ML VIAL SUB-Q SCH ×2 (09:55→21:46)
--- NOTE | 2020-04-23 09:56 | Progress Note ---
Assessment and Plan Cultures: Blood culture no growth so far Covid positive A/P: 30-year-old female past medical history asthma, morbid obesity admitted with COVID-19 #COVID-19 pneumonia: Patient presented with 4 days of symptoms, chest x-ray normal, admission O2 sats 98% on room air. Normal procalcitonin. #Acute hypoxemic respiratory failure: Likely secondary to COVID-19 infection. Currently on room air. #Morbid obesity: Associated with worse COVID-19 outcomes #Asthma: currently on high-dose steroids Recs: -Obtain 6-minute walking test, if passes test okay to discharge, patient does not need to complete 5 days of remdesivir./Patient currently on room air -Steroids per primary, complete 10 days. -Continue remdesivir, monitor renal and hepatic function. Day 3 of 5. -Recheck inflammatory markers today -Anticoagulation per hospital protocol -Proning as able Crys Mijares MD [facility] ([facility]) Office [phone] Subjective Date of service: 04/23/20 Principal diagnosis: Covid pneumonia Interval history: Patient on room air, no fever, no tachycardia, no hypotension. Objective - Exam Narrative Exam: Physical exam deferred to minimize COVID-19 transmission during pandemic. ER and internal medicine physical examination notes reviewed. - Constitutional Vitals: Vital Signs Temp Pulse Resp BP Pulse Ox 98.2 F 84 18 105/70 97 04/23/20 05:08 04/23/20 08:04 04/23/20 08:04 04/23/20 05:08 04/23/20 08:04 Temperature -Last 24 Hours Temperature 98.2 F Temperature 97.8 F Temperature 97.8 F Temperature 97.7 F - Labs CBC & Chem 7: 04/19/20 07:22 04/23/20 05:31 Labs: Abnormal lab results 04/23/20 Range/Units 05:31 Glucose 134 H (65-100) mg/dL Total Protein 5.7 L (6.3-8.2) g/dL Albumin 3.6 L (3.9-5) g/dL
--- NOTE | 2020-04-23 11:44 | Progress Note ---
Assessment and Plan - Patient Problems (1) Acute respiratory failure with hypoxia Current Visit: Yes Status: Acute Plan to address problem: Supplemental oxygen, pulse oximetry, supportive care, proposition while in bed, wean supplemental oxygen to off as clinically indicated. (2) Coronavirus infection Current Visit: Yes Status: Acute Plan to address problem: Contact precautions, isolation precautions, IV antibiotic therapy, IV steroid therapy, full course remdesivir therapy. (3) Obesity hypoventilation syndrome Current Visit: Yes Status: Acute Plan to address problem: Supplemental oxygen, pulse oximetry, outpatient pulmonary follow-up for sleep study. Balanced diet, increase physical activity discharge. (4) DVT prophylaxis Current Visit: Yes Status: Acute Plan to address problem: SCD to bilateral lower extremities while in bed, patient is ambulatory. Prophylactic anticoagulation History Interval history: 30 YO Female HD #5 with acute hypoxemic respiratory failure, obesity hypoventilation syndrome, coronavirus infection currently undergoing remdesivir therapy. Patient states that she feels better again today. Patient denies fever, chills, chest pain, productive cough. No reported nursing events. Hospitalist Physical - Constitutional Vitals: Temp Pulse Resp BP Pulse Ox 98.2 F 84 18 105/70 97 04/23/20 05:08 04/23/20 08:04 04/23/20 08:04 04/23/20 05:08 04/23/20 08:04 General appearance: Present: no acute distress, well-nourished - EENT Eyes: Present: PERRL ENT: hearing intact - Neck Neck: Present: supple - Respiratory Respiratory effort: labored Respiratory: bilateral: diminished, rhonchi - Cardiovascular Rhythm: regular Heart Sounds: Present: S1 & S2 - Extremities Extremities: no ischemia Peripheral Pulses: within normal limits - Abdominal General gastrointestinal: soft, non-tender, non-distended - Integumentary Integumentary: Present: clear, dry - Psychiatric Psychiatric: appropriate mood/affect, cooperative - Neurologic Neurologic: CNII-XII intact Results - Labs CBC & Chem 7: 04/19/20 07:22 04/23/20 05:31 Labs: Laboratory Last Values WBC 6.2 K/mm3 (4.5-11.0) 04/19/20 07:22 RBC 4.37 M/mm3 (3.65-5.03) 04/19/20 07:22 Hgb 13.5 gm/dl (10.1-14.3) 04/19/20 07: Hct 39.3 % (30.3-42.9) 04/19/20 07: MCV 90 fl (79-97) 04/19/20 07: MCH 31 pg (28-32) 04/19/20 07: MCHC 34 % (30-34) 04/19/20 07:22 RDW 12.7 % (13.2-15.2) L 04/19/20 07:22 Plt Count 264 K/mm3 (140-440) 04/19/20 07:22 Lymph % (Auto) 15.4 % (13.4-35.0) 04/19/20 07: Linn % (Auto) 2.6 % (0.0-7.3) 04/19/20 07: Eos % (Auto) 0.0 % (0.0-4.3) 04/19/20 07: Baso % (Auto) 0.1 % (0.0-1.8) 04/19/20 07: Lymph # (Auto) 0.9 K/mm3 (1.2-5.4) L 04/19/20 07:22 Linn # (Auto) 0.2 K/mm3 (0.0-0.8) 04/19/20 07: Eos # (Auto) 0.0 K/mm3 (0.0-0.4) 04/19/20 07: Baso # (Auto) 0.0 K/mm3 (0.0-0.1) 04/19/20 07: Seg Neutrophils % 81.9 % (40.0-70.0) H 04/19/20 07: Seg Neutrophils # 5.0 K/mm3 (1.8-7.7) 04/19/20 07: PT 13.1 Sec. (12.2-14.9) 04/18/20 13:09 INR 1.00 (0.87-1.13) 04/18/20 13:09 D-Dimer 228.57 ng/mlDDU (0-234) 04/21/20 13:07 Sodium 137 mmol/L (137-145) 04/23/20 05:31 Potassium 3.8 mmol/L (3.6-5.0) 04/23/20 05:31 Chloride 100.2 mmol/L (98-107) 04/23/20 05:31 Carbon Dioxide 25 mmol/L (22-30) 04/23/20 05:31 Anion Gap 16 mmol/L 04/23/20 05:31 BUN 15 mg/dL (7-17) 04/23/20 05:31 Creatinine 0.6 mg/dL (0.6-1.2) 04/23/20 05:31 Estimated GFR > 60 ml/min 04/23/20 05:31 BUN/Creatinine Ratio 25 % 04/23/20 05:31 Glucose 134 mg/dL (65-100) H 04/23/20 05:31 Hemoglobin A1c 5.6 % (4-6) 04/18/20 23:20 Calcium 8.5 mg/dL (8.4-10.2) 04/23/20 05:31 Ferritin 73.6 ng/mL (10.0-200.0) 04/21/20 13:07 Total Bilirubin 0.20 mg/dL (0.1-1.2) 04/23/20 05:31 AST 8 units/L (5-40) 04/23/20 05:31 ALT 11 units/L (7-56) 04/23/20 05:31 Alkaline Phosphatase 53 units/L (35-129) 04/23/20 05:31 Lactate Dehydrogenase 212 units/L (91-180) H 04/21/20 13:07 C-Reactive Protein 0.10 mg/dL (0.00-1.30) 04/21/20 13:07 Total Protein 5.7 g/dL (6.3-8.2) L 04/23/20 05:31 Albumin 3.6 g/dL (3.9-5) L 04/23/20 05:31 Albumin/Globulin Ratio 1.7 % 04/23/20 05:31 Procalcitonin < 0.05 ng/mL (<0.15) 04/18/20 20:50 HCG, Qual Negative (Negative) 04/18/20 13:09 Coronavirus (PCR) Positive (Negative) A 04/19/20 09:46 Microbiology: Microbiology 04/18/20 13:09 Peripheral/Venous Blood Culture - Preliminary NO GROWTH AFTER 4 DAYS 04/18/20 13:09 Peripheral/Venous Blood Culture - Preliminary NO GROWTH AFTER 4 DAYS Rasmussen/IV: Voiding Method Toilet IV Catheter Type [Right Hand] Peripheral IV IV Catheter Type [Right Peripheral IV Forearm] IV Catheter Type [Left Peripheral IV Antecubital] Active Medications - Current Medications Current Medications: Generic Name Dose Route Start Last Admin Trade Name Freq PRN Reason Stop Dose Admin Acetaminophen 650 mg 04/18/20 22:10 04/22/20 08:53 Acetaminophen 325 Mg Tab PO 650 mg Q4H PRN Administration Pain MILD(1-3)/Fever >100.5/DESOUZA Albuterol 2 puff 04/20/20 03:00 Albuterol 8.5 Gm Mdi Inhalation IH Q3HRT PRN Shortness Of Breath Albuterol/Ipratropium 1 ampul 04/22/20 20:00 04/23/20 08:02 Ipratropium/Albuterol Sulfate 3 Ml Ampul.Neb IH 1 ampul TIDRT MIKA Administration Famotidine 20 mg 04/20/20 10:00 04/23/20 09:55 Famotidine 20 Mg Tab PO 20 mg BID MIKA Administration Guaifenesin 10 ml 04/20/20 00:10 04/22/20 21:30 Guaifenesin Dm 200/20 Mg Oral Liqd 10 Ml PO 10 ml Q4H PRN Administration Cough Heparin Sodium (Porcine) 5,000 unit 04/18/20 22:15 04/23/20 09:55 Heparin 5,000 Unit/1 Ml Vial SUB-Q 5,000 unit Q12HR MIKA Administration Hydromorphone HCl 0.5 mg 04/18/20 22:10 04/19/20 12:15 Hydromorphone 1 Mg/1 Ml Inj IV 0.5 mg Q3H PRN Administration Pain , Severe (7-10) Sodium Chloride 1,000 mls @ 42 mls/hr 04/18/20 22:15 04/19/20 22:57 Nacl 0.9% 1000 Ml IV 42 mls/hr DIRECT MIKA Administration REMDESIVIR 100 mg/ Sodium 250 mls @ 500 mls/hr 04/22/20 21:00 04/22/20 22:52 Chloride IV 04/25/20 21:29 Infused Q24HR@2100 MIKA Infusion Methylprednisolone Sodium Succinate 80 mg 04/18/20 23:00 04/23/20 06:14 Methylprednisolone Sod Succinate 40 Mg/1 Ml Inj IV 80 mg Q8HR MIKA Administration Metoclopramide HCl 10 mg 04/18/20 22:10 Metoclopramide 10 Mg/2 Ml Inj IV Q6H PRN Nausea And Vomiting Ondansetron HCl 4 mg 04/18/20 22:10 Ondansetron 4 Mg/2 Ml Inj IV Q8H PRN Nausea And Vomiting Oxycodone/Acetaminophen 1 tab 04/18/20 22:10 04/22/20 21:30 Oxycodone /Acetaminophen 5-325mg Tab PO 1 tab Q6H PRN Administration Pain, Moderate (4-6) Sodium Chloride 10 ml 04/18/20 23:00 04/23/20 09:55 Sodium Chloride 0.9% 10 Ml Flush Syringe IV 10 ml BID MIKA Administration Sodium Chloride 10 ml 04/18/20 22:10 04/19/20 10:41 Sodium Chloride 0.9% 10 Ml Flush Syringe IV 10 ml PRN PRN Administration LINE FLUSH Sodium Chloride 50 ml 04/21/20 08:30 04/22/20 21:01 Sodium Chloride 0.9% 50 Ml Ivpb IV 04/25/20 21:01 50 ml Q24HR@2100 MIKA Administration
[2020-04-23] MEDS: oxyCODONE /ACETAMINOPHEN 5-325MG TAB PO PRN ×2 (15:58→21:44)
[2020-04-23] MEDS: SODIUM CHLORIDE 0.9% 50 ML IVPB IV SCH (21:44)
[2020-04-23] MEDS: REMDESIVIR 100 MG in SODIUM CHLORIDE 0.9% 250ML 250 ML IV SCH (21:44)
[2020-04-24] MEDS: methylPREDNISolone Sod Succinate 40 MG/1 ML INJ IV SCH ×2 (06:08→18:04)
[2020-04-24 07:01] LABS: Alanine Aminotransferase 12 units/L (7-56); Albumin 3.5 g/dL (3.9-5); Blood Urea Nitrogen 18 mg/dL (7-17); Calcium 8.3 mg/dL (8.4-10.2); Hemolysis Index 14
[2020-04-24 07:30] LABS: BUN/Creatinine Ratio 26
[2020-04-24] MEDS: IPRATROPIUM/ALBUTEROL SULFATE 3 ML AMPUL.NEB IH SCH ×2 (07:39→13:52)
--- NOTE | 2020-04-24 10:32 | Progress Note ---
Assessment and Plan Cultures: Blood culture no growth so far Covid positive A/P: 30-year-old female past medical history asthma, morbid obesity admitted with COVID-19 #COVID-19 pneumonia: Patient presented with 4 days of symptoms, chest x-ray normal, admission O2 sats 98% on room air. Normal procalcitonin. Repeat markers normal. #Acute hypoxemic respiratory failure: Likely secondary to COVID-19 infection. Currently on room air. #Morbid obesity: Associated with worse COVID-19 outcomes #Asthma: currently on high-dose steroids Recs: -Obtain 6-minute walking test, if passes test okay to discharge, patient does not need to complete 5 days of remdesivir./Patient currently on room air -Steroids per primary, complete 10 days. -Continue remdesivir, monitor renal and hepatic function. Day 4 of 5. -Anticoagulation per hospital protocol Ok to d/c from ID standpoint, will sign off. Crys Mijares MD [facility] ([facility]) Office [phone] Subjective Date of service: 04/24/20 Principal diagnosis: Covid pneumonia Interval history: On room air, no fever, no desaturations Objective - Exam Narrative Exam: Physical exam deferred to minimize COVID-19 transmission during pandemic. ER and internal medicine physical examination notes reviewed. - Constitutional Vitals: Vital Signs Temp Pulse Resp BP Pulse Ox 97.7 F 82 20 106/63 96 04/24/20 05:04 04/24/20 07:39 04/24/20 07:39 04/24/20 05:04 04/24/20 07:39 Temperature -Last 24 Hours Temperature 97.7 F Temperature 97.7 F Temperature 97.5 F Temperature 97.6 F - Labs CBC & Chem 7: 04/19/20 07:22 04/24/20 05:32 Labs: Abnormal lab results 04/24/20 Range/Units 05:32 BUN 18 H (7-17) mg/dL Glucose 160 H (65-100) mg/dL Calcium 8.3 L (8.4-10.2) mg/dL Total Protein 5.7 L (6.3-8.2) g/dL Albumin 3.5 L (3.9-5) g/dL
--- NOTE | 2020-04-24 11:01 | Discharge Summary ---
Providers - Providers Date of Admission: 04/20/20 10:48 Attending physician: FELECIA GOODMAN MD 04/21/20 05:59 Consult to Physician [CONS] Routine Comment: Consulting Provider: NAT GÓMEZ Physician Instructions: Reason For Exam: Covid positive Primary care physician: LIDIA MAKI Hospitalization Reason for admission: COVID 19 Condition: Fair Hospital course: The patient is a 30-year-old female present with a chief complaint of shortness of breath. Patient states for the past 3 to 4 days she has had gradually worsening shortness of breath. Patient admits to a cough productive of yellow sputum occasionally blood-tinged. Patient denies history of fever. Patient denies known contact with Covid positive patients Patients covid 19 testing was positive and patient was treated as the same. She has clinically improved, although she reports generalized body pain ammendable to percocet. Counselling was provided. Patient understands precautions that needs to be adhared to. (1) Acute respiratory failure with hypoxia (2) Coronavirus infection (3) Obesity hypoventilation syndrome (4) Morbid Obesity Disposition: TO HOME OR SELFCARE Time spent for discharge: 35 MINS Core Measure Documentation - Palliative Care Palliative Care/ Comfort Measures: Not Applicable - Core Measures Any of the following diagnoses?: none Exam - Physical Exam Narrative exam: General appearance: Present: no acute distress, well-nourished - EENT Eyes: Present: PERRL ENT: hearing intact - Neck Neck: Present: supple - Respiratory Respiratory effort: labored Respiratory: bilateral: diminished, rhonchi - Cardiovascular Rhythm: regular Heart Sounds: Present: S1 & S2 - Extremities Extremities: no ischemia Peripheral Pulses: within normal limits - Abdominal General gastrointestinal: soft, non-tender, non-distended - Integumentary Integumentary: Present: clear, dry - Psychiatric Psychiatric: appropriate mood/affect, cooperative - Neurologic Neurologic: CNII-XII intact - Constitutional Vitals: Temp Pulse Resp BP Pulse Ox 97.7 F 82 20 106/63 96 04/24/20 05:04 04/24/20 07:39 04/24/20 07:39 04/24/20 05:04 04/24/20 07:39 Plan Activity: advance as tolerated, fall precautions Diet: low fat Special Instructions: record daily weights, record daily BP diary Additional Instructions: follow covid precautions Follow up with: LIDIA MAKI MD [Primary Care Provider] - 3-5 Days Prescriptions: dexAMETHasone [Dexamethasone] 6 mg PO DAILY #7 tablet guaiFENesin DM [Guaifenesin Dm Syrup] 10 ml PO Q4H PRN #10 oral.liqd PRN Reason: Cough Famotidine [Pepcid] 20 mg PO DAILY #30 tablet Albuterol Sulfate [Proair Respiclick] 90 mcg IH Q6H PRN #1 PRN Reason: Wheezing traMADoL [Ultram] 50 mg PO Q6HR PRN #10 tablet PRN Reason: Pain
[2020-04-24] MEDS: HEPARIN 5,000 UNIT/1 ML VIAL SUB-Q SCH (12:13)
[2020-04-24] MEDS: FAMOTIDINE 20 MG TAB PO SCH (12:13)
[2020-04-24 13:53] VITALS: BP 110/69
== END 2020-04-24 16:45 | disposition home or self-care (01) | DRG 177 ==
LOC: ED 12:17 → 4A 16:15 → 3A 04-19 20:41 → OBSVTOIN 04-20 10:48
PROVIDERS: ADMIT Internal Medicine; ATTEND Internal Medicine
PROC: XW033E5 Introduction of Remdesivir Anti-infective into Peripheral Vein, Percutaneous Approach, New Technology Group 5 (ICD-10-PCS; principal; 2020-04-21)
DX: U07.1 COVID-19 (principal); J96.01 Acute respiratory failure with hypoxia; J45.901 Unspecified asthma with (acute) exacerbation; J20.9 Acute bronchitis, unspecified; E66.2 Morbid (severe) obesity with alveolar hypoventilation; J12.82 Pneumonia due to coronavirus disease 2019; Z68.41 Body mass index [BMI] 40.0-44.9, adult
CPT/HCPCS: 36415; 71045; 80048; 80053; 82728; 83036; 83615; 84145; 84703; 85025; 85379; 85610; 86140; 87040; 94640; 94644; 94760; 96374; G0378; J0696; J1170; J1644; J1956; J2920; J7030; U0003

== ENCOUNTER 2020-05-30 05:47 | Emergency (ER) | payer MEDICAID ==
[2020-05-30] MEDS ORDERED: IPRATROPIUM/ALBUTEROL SULFATE 3 ML AMPUL.NEB IH ONE ×2 (06:10→06:33)
--- NOTE | 2020-05-30 06:14 | Emergency Department Report ---
ED General Adult HPI - General Chief complaint: Dyspnea/Respdistress Stated complaint: ASTHMA Time Seen by Provider: 05/30/20 06:04 Source: police, EMS Mode of arrival: Stretcher Limitations: No Limitations - History of Present Illness Initial comments: Patient presents emergency department for evaluation of dyspnea consistent with previous asthma exacerbations. Patient gave herself 4 albuterol treatments prior to calling EMS, patient received Solu-Medrol and magnesium in route to hospital. Patient denies fever, denies sore throat, denies chest pain. - Related Data Previous Rx's Medication Instructions Recorded Last Taken Type Albuterol Sulfate [Proair 90 mcg IH Q6H PRN #1 04/24/20 Unknown Rx Respiclick] Famotidine [Pepcid] 20 mg PO DAILY #30 tablet 04/24/20 Unknown Rx dexAMETHasone [Dexamethasone] 6 mg PO DAILY #7 tablet 04/24/20 Unknown Rx guaiFENesin DM [Guaifenesin Dm 10 ml PO Q4H PRN #10 oral.liqd 04/24/20 Unknown Rx Syrup] traMADoL [Ultram] 50 mg PO Q6HR PRN #10 tablet 04/24/20 Unknown Rx predniSONE [Deltasone] 40 mg PO QDAY 4 Days #8 tab 05/30/20 Unknown Rx Allergies Allergy/AdvReac Type Severity Reaction Status Date / Time No Known Allergies Allergy Unverified 04/18/20 12:21 ED Review of Systems ROS: Stated complaint: ASTHMA Other details as noted in HPI Comment: All other systems reviewed and negative ED Past Medical Hx - Past Medical History Previous Medical History?: Yes Hx Congestive Heart Failure: No Hx Diabetes: No Hx Asthma: Yes - Surgical History Past Surgical History?: No - Social History Smoking Status: Never Smoker - Medications Home Medications: Home Medications Medication Instructions Recorded Confirmed Last Taken Type Albuterol Sulfate [Proair 90 mcg IH Q6H PRN #1 04/24/20 Unknown Rx Respiclick] Famotidine [Pepcid] 20 mg PO DAILY #30 tablet 04/24/20 Unknown Rx dexAMETHasone [Dexamethasone] 6 mg PO DAILY #7 tablet 04/24/20 Unknown Rx guaiFENesin DM [Guaifenesin Dm 10 ml PO Q4H PRN #10 oral.liqd 04/24/20 Unknown Rx Syrup] traMADoL [Ultram] 50 mg PO Q6HR PRN #10 tablet 04/24/20 Unknown Rx predniSONE [Deltasone] 40 mg PO QDAY 4 Days #8 tab 05/30/20 Unknown Rx ED Physical Exam - General Limitations: No Limitations General appearance: alert, in no apparent distress - Head Head exam: Present: atraumatic, normocephalic - Eye Eye exam: Present: normal appearance - ENT ENT exam: Present: mucous membranes moist - Neck Neck exam: Present: normal inspection - Respiratory Respiratory exam: Present: wheezes, decreased breath sounds. Absent: respiratory distress - Cardiovascular Cardiovascular Exam: Present: regular rate, normal rhythm. Absent: systolic murmur, diastolic murmur, rubs, gallop - GI/Abdominal GI/Abdominal exam: Present: soft, normal bowel sounds - Extremities Exam Extremities exam: Present: normal inspection - Back Exam Back exam: Present: normal inspection - Neurological Exam Neurological exam: Present: alert, oriented X3 - Psychiatric Psychiatric exam: Present: normal affect, normal mood - Skin Skin exam: Present: warm, dry, intact, normal color. Absent: rash ED Course Vital Signs 05/30/20 05/30/20 05/30/20 05:50 06:19 06:23 Temperature 97.6 F Pulse Rate 109 H 87 Pulse Rate [ 75 Bilateral] Respiratory 18 18 Rate Respiratory 20 Rate [Bilateral ] Blood Pressure 114/71 Blood Pressure 108/63 [Right] O2 Sat by Pulse 96 98 Oximetry - Reevaluation(s) Reevaluation #1: 05/30/20 06:14 Patient initially treated with DuoNeb x1 Reevaluation #2: 05/30/20 06:37 Patient reevaluated, no longer dyspneic, however, on exam has trace wheeze improved from initial lung exam. Given additional DuoNeb's x2. Reevaluation #3: 05/30/20 06:48 On reevaluation, patient in no acute distress. Lungs are clear to auscultation bilaterally. Pulse 96. Patient advised to follow-up with PMD in 1 to 2 days for reevaluation and outpatient COVID-19 testing. 05/30/20 06:40 ED Medical Decision Making - Lab Data Vital Signs 05/30/20 05/30/20 05/30/20 05:50 06:19 06:23 Temperature 97.6 F Pulse Rate 109 H 87 Pulse Rate [ 75 Bilateral] Respiratory 18 18 Rate Respiratory 20 Rate [Bilateral ] Blood Pressure 114/71 Blood Pressure 108/63 [Right] O2 Sat by Pulse 96 98 Oximetry - Radiology Data Radiology results: report reviewed [facility] [address] [place] [address] XRay Report Signed Patient: ESTELLE GIRARD MR#: [id number] : 1990 Acct:[id number] Age/Sex: 30 / F ADM Date: 05/30/20 Loc: ED Attending Dr: Ordering Physician: JEANNE SORTO MD Date of Service: 05/30/20 Procedure(s): XR chest 1V ap Accession Number(s): [id number] cc: JEANNE SORTO MD Fluoro Time In Minutes: XR chest 1V ap INDICATION / CLINICAL INFORMATION: dyspnea. COMPARISON: 04/18/2020 FINDINGS: Findings in the chest are accentuated by body habitus and phase of inspiration. SUPPORT DEVICES: None. HEART /PULMONARY VASCULATURE: No significant abnormality. LUNGS / PLEURA: No significant pulmonary or pleural abnormality. No pneumothorax. ADDITIONAL FINDINGS: No significant additional findings. IMPRESSION: 1. No acute findings. Signer Name: Rich Newton MD Signed: 05/30/2020 6:27 AM Workstation Name: [id number] Transcribed By: JS Dictated By: RICH NEWTON MD Electronically Authenticated By: RICH NEWTON MD Signed Date/Time: 05/30/20626 DD/ 5 TD/TT: - Medical Decision Making PE RC: 0/8 Critical care attestation.: If time is entered above; I have spent that time in minutes in the direct care of this critically ill patient, excluding procedure time. ED Disposition Clinical Impression: Upper respiratory infection Disposition: DC-01 TO HOME OR SELFCARE Is pt being admited?: No Does the pt Need Aspirin: No Condition: Stable Instructions: Upper Respiratory Infection, Adult Additional Instructions: Follow-up with primary care doctor in 1 to 2 days for reevaluation and outpatient COVID-19 testing. Return to the emergency department for shortness of breath or worsening symptoms. Prescriptions: predniSONE [Deltasone] 40 mg PO QDAY 4 Days #8 tab Referrals: PRIMARY CARE, [Primary Care Provider] - 3-5 Days
[2020-05-30 06:24] VITALS: BP 108/63
--- NOTE | 2020-05-30 06:31 | XRay Report ---
XR chest 1V ap INDICATION / CLINICAL INFORMATION: dyspnea. COMPARISON: 04/18/2020 FINDINGS: Findings in the chest are accentuated by body habitus and phase of inspiration. SUPPORT DEVICES: None. HEART /PULMONARY VASCULATURE: No significant abnormality. LUNGS / PLEURA: No significant pulmonary or pleural abnormality. No pneumothorax. ADDITIONAL FINDINGS: No significant additional findings. IMPRESSION: 1. No acute findings. Signer Name: Austin Newton MD Signed: 05/30/2020 6:27 AM Workstation Name: [id number]
[2020-05-30] MEDS: IPRATROPIUM/ALBUTEROL SULFATE 3 ML AMPUL.NEB IH ONE ×2 (06:38→06:39)
== END 2020-05-30 07:14 | disposition home or self-care (01) ==
LOC: ED 05:47
DX: J06.9 Acute upper respiratory infection, unspecified (principal); Z79.899 Other long term (current) drug therapy
CPT/HCPCS: 71045; 94640; 94644

== ENCOUNTER 2021-02-03 16:07 | Emergency (ER) | payer MEDICAID ==
[2021-02-03] MEDS ORDERED: SODIUM CHLORIDE 0.9% 1000 ML 1,000 ML IV ONE (16:31)
[2021-02-03] MEDS ORDERED: ALBUTEROL 2.5 MG/3 ML NEBU IH ONE (16:31)
[2021-02-03] MEDS ORDERED: IPRATROPIUM 0.02% NEBU 2.5 ML IH ONE (16:31)
--- NOTE | 2021-02-03 16:35 | Emergency Department Report ---
ED Asthma HPI - General Chief Complaint: Adult Asthma Stated Complaint: ASTHMA (DEBBIE) Time Seen by Provider: 02/03/21 16:21 Source: patient Mode of arrival: Stretcher Limitations: No Limitations - History of Present Illness Initial Comments: Patient presents ambulance secondary to difficulty breathing. She has long history of asthma. This started bothering her 2 days ago. She was using her albuterol. She has not been on steroids. She came in by ambulance because she could not catch her breath today. There has been a cough which is nonproductive . Again, she has no fevers. She has had no sick contacts. Patient has been admitted before. She is never been intubated before. She does have an inhaler to use at home. EMS administered Solu-Medrol as well as magnesium with albuterol 5 mg by neb. She is still dyspneic upon arrival here. - Related Data Previous Rx's Medication Instructions Recorded Last Taken Type Albuterol Sulfate [Proair 90 mcg IH Q6H PRN #1 04/24/20 Unknown Rx Respiclick] Famotidine [Pepcid] 20 mg PO DAILY #30 tablet 04/24/20 Unknown Rx traMADoL [Ultram] 50 mg PO Q6HR PRN #10 tablet 04/24/20 Unknown Rx Benzonatate [Tessalon Perles] 100 mg PO Q8HR #20 capsule 02/03/21 Unknown Rx predniSONE [Deltasone] 40 mg PO QDAY 4 Days #8 tab 02/03/21 Unknown Rx Allergies Allergy/AdvReac Type Severity Reaction Status Date / Time No Known Allergies Allergy Unverified 04/18/20 12:21 ED Review of Systems ROS: Stated complaint: ASTHMA (DEBBIE) Other details as noted in HPI Comment: All other systems reviewed and negative Constitutional: denies: fever Eyes: denies: eye pain ENT: denies: throat pain Respiratory: see HPI Cardiovascular: denies: chest pain Endocrine: denies: unexplained weight loss Gastrointestinal: denies: abdominal pain Genitourinary: denies: dysuria Musculoskeletal: denies: back pain Skin: denies: rash Neurological: denies: headache Hematological/Lymphatic: denies: easy bruising ED Past Medical Hx - Past Medical History Previous Medical History?: Yes Hx Congestive Heart Failure: No Hx Diabetes: No Hx Asthma: Yes - Family History Family history: other (Asthma) - Social History Smoking Status: Never Smoker - Medications Home Medications: Home Medications Medication Instructions Recorded Confirmed Last Taken Type Albuterol Sulfate [Proair 90 mcg IH Q6H PRN #1 04/24/20 Unknown Rx Respiclick] Famotidine [Pepcid] 20 mg PO DAILY #30 tablet 04/24/20 Unknown Rx traMADoL [Ultram] 50 mg PO Q6HR PRN #10 tablet 04/24/20 Unknown Rx Benzonatate [Tessalon Perles] 100 mg PO Q8HR #20 capsule 02/03/21 Unknown Rx predniSONE [Deltasone] 40 mg PO QDAY 4 Days #8 tab 02/03/21 Unknown Rx ED Physical Exam - General Limitations: No Limitations, Other (Pulse ox was hypoxic at 95%. This improved with treatment.) General appearance: alert, in distress (Moderate), obese - Head Head exam: Present: atraumatic, normocephalic, normal inspection - Eye Eye exam: Present: normal appearance, EOMI. Absent: scleral icterus - ENT ENT exam: Present: normal exam, normal orophraynx, normal external ear exam - Neck Neck exam: Present: normal inspection. Absent: meningismus - Respiratory Respiratory exam: Present: respiratory distress (Moderate), wheezes (Bilateral), prolonged expiratory - Cardiovascular Cardiovascular Exam: Present: normal rhythm, tachycardia - GI/Abdominal GI/Abdominal exam: Present: soft. Absent: tenderness - Extremities Exam Extremities exam: Present: normal capillary refill. Absent: pedal edema - Back Exam Back exam: Absent: CVA tenderness (R), CVA tenderness (L) - Neurological Exam Neurological exam: Present: alert, oriented X3, CN II-XII intact. Absent: motor sensory deficit - Psychiatric Psychiatric exam: Present: normal affect, normal mood - Skin Skin exam: Present: warm, dry ED Course Vital Signs 02/03/21 02/03/21 02/03/21 16:25 16:45 18:24 Temperature 97.9 F Pulse Rate 119 H 99 H Pulse Rate [ 102 H Bilateral] Respiratory 26 H 20 Rate Respiratory 20 Rate [Bilateral ] Blood Pressure 125/62 [Right] O2 Sat by Pulse 95 99 Oximetry 02/03/21 18:25 Temperature Pulse Rate Pulse Rate [ Bilateral] Respiratory Rate Respiratory Rate [Bilateral ] Blood Pressure 144/70 [Right] O2 Sat by Pulse Oximetry - Reevaluation(s) Reevaluation #1: 02/03/21 16:32 IV labs ordered. EMS at the [facility] upon arrival. Chest x-ray was ordered. Old records reviewed. Continuous neb was started. Reevaluation #2: 02/03/21 19:44 Patient is feeling better. She no longer is wheezing. She states that she would like something for congestion. Patient was discharged. ED Medical Decision Making - Lab Data Result diagrams: 02/03/21 16:45 Rhythm strip: Sinus tachycardia without ectopy. Monitor observe 10 seconds. - Radiology Data Radiology results: report reviewed - Medical Decision Making Patient presents with asthma exacerbation. She has a cough and congestion. There is evidence of an upper respiratory infection. She clinically does not h ave evidence of pneumonia. Radiographically, there is no evidence of pneumonia or pneumothorax. She does not have radiographic evidence would suggest coronavirus. Patient is in no respiratory stress. There is no symptomatology that would be consistent with congestive heart failure. She does not have pleuritic pain. She is not hypoxic at this time. I do not believe this represents pulmonary embolism. She is no longer wheezing. She will be treated symptomatically as an outpatient. She does not require intubation at this time. Critical Care Time: No Critical care attestation.: If time is entered above; I have spent that time in minutes in the direct care of this critically ill patient, excluding procedure time. ED Disposition Clinical Impression: Acute asthma exacerbation Qualifiers: Asthma severity: moderate Asthma persistence: persistent Qualified Code(s): J45.41 - Moderate persistent asthma with (acute) exacerbation Disposition: 01 HOME / SELF CARE / HOMELESS Is pt being admited?: No Condition: Stable Instructions: Asthma, Adult, Peak Flow Meter, Cough, Adult, [id number] Additional Instructions: Drink plenty water. Return for problems. Follow-up with your regular doctor. Continue to use your inhalers and nebulizers at home. Prescriptions: predniSONE [Deltasone] 40 mg PO QDAY 4 Days #8 tab Benzonatate [Tessalon Perles] 100 mg PO Q8HR #20 capsule Referrals: PRIMARY MD CYNTHIA [Primary Care Provider] - 3-5 Days ALVIN SAWYER MD [Staff Physician] - 3-5 Days
--- NOTE | 2021-02-03 17:14 | XRay Report ---
CHEST 1 VIEW 02/03/2021 5:00 PM INDICATION / CLINICAL INFORMATION: Dyspnea, cough. COMPARISON: 01/16/2021 FINDINGS: SUPPORT DEVICES: None. HEART / MEDIASTINUM: No significant abnormality. LUNGS / PLEURA: No significant pulmonary or pleural abnormality. No pneumothorax. ADDITIONAL FINDINGS: No significant additional findings. IMPRESSION: 1. No acute findings. Signer Name: Henry Baez MD Signed: 02/03/2021 5:09 PM Workstation Name: [id number]
[2021-02-03 17:53] LABS: Blood Urea Nitrogen 10 mg/dL (7-17); Calcium 8.8 mg/dL (8.4-10.2); Hemolysis Index 9
[2021-02-03 17:54] LABS: BUN/Creatinine Ratio 20
[2021-02-03] MEDS ORDERED: IPRATROPIUM/ALBUTEROL SULFATE 3 ML AMPUL.NEB IH ONE (21:44)
[2021-02-03] MEDS ORDERED: SODIUM CHLORIDE 0.9% 1000 ML 1,000 ML ONE (21:51)
[2021-02-03 22:46] VITALS: BP 128/78
== END 2021-02-03 22:46 | disposition home or self-care (01) ==
LOC: ED 16:07
DX: J45.901 Unspecified asthma with (acute) exacerbation (principal); Z98.890 Other specified postprocedural states; Z79.899 Other long term (current) drug therapy
CPT/HCPCS: 36415; 71045; 80048; 94640; 94644; 96360; 99284; J7030

== ENCOUNTER 2021-05-08 05:01 | Emergency (ER) | payer SELFPAY ==
[2021-05-08] MEDS ORDERED: SODIUM CHLORIDE 0.9% 1000 ML 1,000 ML IV ONE (05:27)
[2021-05-08] MEDS ORDERED: IPRATROPIUM 0.02% NEBU 2.5 ML IH ONE ×2 (05:27→06:54)
[2021-05-08] MEDS ORDERED: TERBUTALINE 1 MG/1 ML INJ SUB-Q ONE (05:27)
[2021-05-08] MEDS ORDERED: ALBUTEROL 8.5 GM MDI INHALATION IH ONE (05:27)
[2021-05-08] MEDS ORDERED: methylPREDNISolone Sod Succinate 125 MG/2 ML INJ IV ONE (05:27)
[2021-05-08] MEDS ORDERED: ALBUTEROL 2.5 MG/3 ML NEBU IH ONE ×2 (05:48→06:54)
--- NOTE | 2021-05-08 05:55 | XRay Report ---
CHEST 1 VIEW INDICATION / CLINICAL INFORMATION: Dyspnea. COMPARISON: 03/24/2021 FINDINGS: SUPPORT DEVICES: None. HEART / MEDIASTINUM: No significant abnormality. LUNGS / PLEURA: No significant pulmonary or pleural abnormality. No pneumothorax. ADDITIONAL FINDINGS: No significant additional findings. IMPRESSION: 1. No acute findings. No interval change. Signer Name: Tali Boggs MD Signed: 05/08/2021 5:51 AM Workstation Name: [employer] [id number]
[2021-05-08] MEDS ORDERED: IPRATROPIUM/ALBUTEROL SULFATE 3 ML AMPUL.NEB IH ONE (05:58)
[2021-05-08 06:02] LABS: Basophils # (Auto) 0.1 K/mm3 (0.0-0.1); Basophils % (Auto) 0.8 % (0.0-1.8); Eosinophils # (Auto) 1.1 K/mm3 (0.0-0.4); Eosinophils % (Auto) 7.4 % (0.0-4.3); Lymphocytes # (Auto) 2.5 K/mm3 (1.2-5.4); Lymphocytes % (Auto) 16.9 % (13.4-35.0); Mean Corpuscular HGB Conc 33 % (30-34); Mean Corpuscular Volume 92 fl (79-97); Monocytes # (Auto) 0.6 K/mm3 (0.0-0.8); Monocytes % (Auto) 3.7 % (0.0-7.3); Platelet Count 347 K/mm3 (140-440); Red Blood Count 4.58 M/mm3 (3.65-5.03); Red Cell Distribution Width 13.1 % (13.2-15.2)
[2021-05-08 06:23] LABS: Alanine Aminotransferase 16 units/L (7-56); Albumin 4.5 g/dL (3.9-5); Blood Urea Nitrogen 13 mg/dL (7-17); Calcium 9.1 mg/dL (8.4-10.2); Hemolysis Index 48
[2021-05-08 06:27] LABS: BUN/Creatinine Ratio 22
[2021-05-08] MEDS ORDERED: MAGNESIUM SULFATE 2 GM/50 ML BAG IV ONE (06:57)
--- NOTE | 2021-05-08 07:00 | Emergency Department Report ---
HPI - General Chief Complaint: Dyspnea/Respdistress Time Seen by Provider: 05/08/21 06:45 - HPI HPI: Room 2 The patient is a 30-year-old female present with a chief complaint of asthma exacerbation. Patient states she has had cough productive of sputum for the past 3 days and since last night 23: 00 she developed persistent wheezing and shortness of breath consistent with her asthma exacerbations. Patient states she tried an albuterol neb and MDI at home but it did not help and subsequently EMS was called. Patient denies history of fever states she has not been vaccinated against Covid. The patient was placed on a nonrebreather and administered epinephrine 0.3 mg by EMS. Prior to my evaluation the patient was administered albuterol and Atrovent in addition to Solu-Medrol and magnesium sulfate. Patient states she feels much improved but is not 100%. ED Past Medical Hx - Past Medical History Hx Asthma: Yes - Surgical History Past Surgical History?: No - Family History Family history: no significant - Social History Smoking Status: Never Smoker Substance Use Type: None (Denies illicit drug use) - Medications Home Medications: Home Medications Medication Instructions Recorded Confirmed Last Taken Type traMADoL [Ultram 50 MG tab] 50 mg PO Q6HR PRN #10 tablet 04/24/20 03/24/21 Unknown Rx Albuterol Sulfate [Proair 90 mcg IH Q6H PRN #1 03/27/21 Unknown Rx Respiclick] Azithromycin [Zithromax TAB] 250 mg PO QDAY #5 tablet 03/27/21 Unknown Rx Benzonatate [Tessalon Perles] 100 mg PO Q8HR #15 capsule 03/27/21 Unknown Rx Famotidine [Pepcid] 20 mg PO DAILY #30 tablet 03/27/21 Unknown Rx Montelukast [Singulair] 10 mg PO QHS #20 tablet 03/27/21 Unknown Rx Prednisone [predniSONE 10 mg 10 mg PO .TAPER #1 tab.ds.pk 03/27/21 Unknown Rx (6-Day Pack, 21 Tabs)] Azithromycin [Zithromax Z-DENISHA] 0 mg PO DAILY #6 tab 05/08/21 Unknown Rx Benzonatate [Tessalon Perles] 100 mg PO Q8HR #30 cap 05/08/21 Unknown Rx Prednisone [predniSONE 10 mg 10 mg PO .TAPER #1 05/08/21 Unknown Rx (6-Day Pack, 21 Tabs)] ED Review of Systems ROS: Stated complaint: DIFFICULTY BREATHING Other details as noted in HPI Constitutional: denies: fever Eyes: denies: eye pain ENT: denies: throat pain Respiratory: cough, shortness of breath, wheezing Cardiovascular: denies: chest pain Endocrine: no symptoms reported Gastrointestinal: denies: abdominal pain Genitourinary: denies: dysuria Musculoskeletal: denies: back pain Neurological: denies: headache Physical Exam - Physical Exam Vital Signs: Vital Signs 05/08/21 05/08/21 05:20 05:27 Temperature 98.8 F Pulse Rate 130 H Respiratory 28 H Rate Blood Pressure 117/89 [Left] O2 Sat by Pulse 100 100 Oximetry Physical Exam: GENERAL: The patient is well-developed well-nourished female lying on stretcher not appearing to be in acute distress. [] HEENT: Normocephalic. Atraumatic. Extraocular motions are intact. Patient has moist mucous membranes. NECK: Supple. Trachea midline CHEST/LUNGS: Faint expiratory wheezing diffusely. There is no respiratory distress noted. HEART/CARDIOVASCULAR: Regular. There is tachycardia. There is no gallop rub or murmur. ABDOMEN: Abdomen is soft, nontender. Patient has normal bowel sounds. There is no abdominal distention. SKIN: There is no rash. There is no edema. There is no diaphoresis. NEURO: The patient is awake, alert, and oriented. The patient is cooperative. The patient has no focal neurologic deficits. The patient has normal speech. GCS 15 MUSCULOSKELETAL: There is no evidence of acute injury. ED Course Vital Signs 05/08/21 05/08/21 05:20 05:27 Temperature 98.8 F Pulse Rate 130 H Respiratory 28 H Rate Blood Pressure 117/89 [Left] O2 Sat by Pulse 100 100 Oximetry - Reevaluation(s) Reevaluation #1: 05/08/21 10:09 Patient states she feels much improved. Lungs clear to auscultation bilaterally ED Medical Decision Making - Lab Data Result diagrams: 05/08/21 05:44 05/08/21 05:44 Laboratory Tests 05/08/21 05/08/21 05:44 05:44 WBC 14.7 H RBC 4.58 Hgb 14.0 Hct 42.0 MCV 92 MCH 31 MCHC 33 RDW 13.1 L Plt Count 347 Lymph % (Auto) 16.9 [place] % (Auto) 3.7 Eos % (Auto) 7.4 H Baso % (Auto) 0.8 Lymph # (Auto) 2.5 [place] # (Auto) 0.6 Eos # (Auto) 1.1 H Baso # (Auto) 0.1 Seg Neutrophils % 71.2 H Seg Neutrophils # 10.5 H Sodium 143 Potassium 4.3 Chloride 107.9 H Carbon Dioxide 21 L Anion Gap 18 BUN 13 Creatinine 0.6 Estimated GFR > 60 BUN/Creatinine Ratio 22 Glucose 118 H Calcium 9.1 Total Bilirubin 0.30 AST 23 ALT 16 Alkaline Phosphatase 73 Total Creatine Kinase 355 H CK-MB (CK-2) 5.0 H CK-MB (CK-2) Rel Index 1.4 Troponin T < 0.010 Total Protein 6.8 Albumin 4.5 Albumin/Globulin Ratio 2.0 - Radiology Data Radiology results: report reviewed (Chest x-ray), image reviewed (Chest x-ray) interpreted by me: Chest x-ray-no definite focal infiltrates, no pneumothorax [facility] [address] [place] [address] XRay Report Signed Patient: ESTELLE GIRARD MR#: [id number] [id number] : 1990 Acct:[id number] Age/Sex: 31 / F ADM Date: 05/08/21 Loc: ED Attending Dr: Ordering Physician: SERG WILL MD Date of Service: 05/08/21 Procedure(s): XR chest 1V ap Accession Number(s): [id number] cc: SERG WILL MD Fluoro Time In Min utes: CHEST 1 VIEW INDICATION / CLINICAL INFORMATION: Dyspnea. COMPARISON: 03/24/2021 FINDINGS: SUPPORT DEVICES: None. HEART / MEDIASTINUM: No significant abnormality. LUNGS / PLEURA: No significant pulmonary or pleural abnormality. No pneumothorax. ADDITIONAL FINDINGS: No significant additional findings. IMPRESSION: 1. No acute findings. No interval change. Signer Name: Tali Boggs MD Signed: 05/08/2021 5:51 AM Workstation Name: [id number] Transcribed By: JR Dictated By: Tali Boggs MD Electronically Authenticated By: Tali Boggs MD Signed Date/Time: 05/08/2151 DD/ 0550 TD/TT: Print Cancel - Medical Decision Making Patient states she has an appointment to see her call center director tomorrow - Differential Diagnosis Acute asthma exacerbation, bronchitis, pneumonia Critical care attestation.: If time is entered above; I have spent that time in minutes in the direct care of this critically ill patient, excluding procedure time. ED Disposition Clinical Impression: Acute asthma exacerbation, Cough Disposition: HOME / SELF CARE / HOMELESS Is pt being admited?: No Does the pt Need Aspirin: No Condition: Stable Instructions: Asthma, Adult Additional Instructions: Return to the emergency department should you develop worsening symptoms, inability to tolerate food or liquids, high fever or any other concerns Prescriptions: Prednisone [predniSONE 10 mg (6-Day Pack, 21 Tabs)] 10 mg PO .TAPER #1 Benzonatate [Tessalon Perles] 100 mg PO Q8HR #30 cap Azithromycin [Zithromax Z-DENISHA] 0 mg PO DAILY #6 tab Referrals: PRIMARY CAREMD [Primary Care Provider] - 3-5 Days TANNA ZAPIEN MD [Staff Physician] - 3-5 Days (Dr. Zapien is a primary physician. Please follow-up with him to be established as a) Your, call center director [Other] - 05/09/21 (Keep your appointment with your call center director) Time of Disposition: 10:13
[2021-05-08 10:21] VITALS: BP 116/64
== END 2021-05-08 10:29 | disposition home or self-care (01) ==
LOC: ED 05:01
DX: J45.901 Unspecified asthma with (acute) exacerbation (principal); R05.9 Cough, unspecified
CPT/HCPCS: 36415; 71045; 80053; 82550; 82553; 84484; 85025; 94644; 96361; 96365; 96372; 96375; 99284; J2930; J3105; J3475; J7030; Q0162